=== PATIENT | female | born 1955 | race Hispanic/Latino ===

== ENCOUNTER → 2017-10-13 | Outpatient (CLI) | payer OTHER, MEDICARE ==
[~2017-10-13] MED LIST: ASPIR 8181 MG PO; ATORVASTATIN CA20 MG PO; BIOTIN 800 MCG1 EACH PO; BIOTIN10 MG; CALCIUM CITRAT1 EAC2 PO; IOPAMIDOL 370 MG/ML 200 ML INFUS..BTL INJ ONE; LEVOCETIRIZINE D5 MG PO; LISINOPRIL2.5 MG PO; OXYBUTYNIN CHLOR5 MG PO; PANTOPRAZOLE SO40 MG PO; SODIUM CHLORIDE 0.9% 50ML 50 ML ONE; ZETIA10 MG PO
[2017-10-13 09:53] LABS: BLOOD UREA NITROGEN 18 mg/dL (7-26); BUN/CREATININE RATIO 24 (6-25); CREATININE, SERUM 0.76 mg/dL (0.57-1.11); EST GLOMERULAR FILTRATION RATE > 60 ML/MIN (60-)
--- NOTE | 2017-10-13 12:06 | Diagnostic Imaging Report ---
EXAM: CT Chest WITH contrast 10/13/2017 9:15 AM INDICATION: \[id number] \S\1000 \S\DYSPNEA/COPD/CHELSI NODULE COMPARISON: Chest CT dated 08/03/2016 TECHNIQUE: Chest was scanned utilizing a multidetector helical scanner from the lung apex through the level of the adrenal glands without administration of IV contrast. Coronal and sagittal reformations were obtained. Routine protocol was performed. IV CONTRAST: 100 mL of Isovue-370 COMPLICATIONS: None RADIATION DOSE: Total DLP: 587.72 mGy*cm Estimated effective dose: (DLP x 0.014 x size factor) mSv CTDIvol has been reviewed. It is below the limits set by the Radiation Protocol Committee (RPC). FINDINGS: LINES/ TUBES: None. LUNGS AND AIRWAYS: Resolved groundglass opacities, seen on prior exam. Unchanged left upper lobe scarring (series 3, image 20). There is also mild right lower lobe scarring (series 3, image 30). No suspicious lung nodule. Airways are normal. PLEURA: The pleural spaces are clear. HEART AND MEDIASTINUM: The thyroid gland is normal. No mediastinal, hilar or axillary lymphadenopathy. The heart is normal in size.. There is no pericardial effusion. UPPER ABDOMEN: Cholecystectomy. Mild biliary dilatation, likely due to postcholecystectomy reservoir effects. BONES: The visualized bony thorax is within normal limits. SOFT TISSUES: Unremarkable. IMPRESSION: No lung opacification to suggest pneumonia. No lymphadenopathy. Signed by: Dr. Ryne Rascon MD on 10/13/2017 12:02 PM
== END ==
LOC: CT 09:07
PROVIDERS: ATTEND Internal Medicine Critical Care Medicine
DX: R06.00 Dyspnea, unspecified (principal); J44.9 Chronic obstructive pulmonary disease, unspecified
CPT/HCPCS: 36415; 71260; 82565; 84520; Q9967

== ENCOUNTER → 2018-01-20 | Day surgery (SDC) | payer MEDICARE, OTHER ==
[~2018-01-20] MED LIST changes: +BUPIVACAINE HCL 0.5% INJ 30 ML VIAL INJ ONE; +CEFAZOLIN SOD 1 GM VIAL ONE; +CETIRIZINE HCL10 MG PO; +DEXAMETHASONE SOD PHOS INJ 4 MG/ML VIAL ONE; +FENTANYL CITRATE/PF 100MCG/2 ML INJ ONE; -IOPAMIDOL 370 MG/ML 200 ML INFUS..BTL INJ ONE; +KETOROLAC TROMETHAMINE 30 MG/ML VIAL ONE; +LIDOCAINE HCL 2% LOCAL INJ 5 ML SDV VIAL INJ ONE; +MIDAZOLAM HCL 2 MG/2 ML VIAL ONE; +MIRAPEX0.25 MG PO; +NORCO 10-325 T1 EACH PO; +ONDANSETRON HCL INJ 2 MG/ML VIAL ONE; +PROPOFOL IV EMULSION 10 MG/ML 20 ML VIAL ONE; +SERTRALINE HCL100 MG PO; +SEVOFLURANE INHAL SOLN 250 ML PEN BTL ONE; -SODIUM CHLORIDE 0.9% 50ML 50 ML ONE; +ZOLPIDEM TARTRA10 MG PO
--- NOTE | 2018-01-20 12:35 | Operative Report ---
DATE OF PROCEDURE: January 20, 2018 [employer] MANAGER: Gurinder Jason PA-C The patient was brought to the operating room for induction of anesthesia. Throughout this case, my PA's assistance was necessary for retraction of soft tissue and positioning of the extremity. This allows for efficient and technically successful execution of the operation and is considered medically necessary. PREOPERATIVE DIAGNOSES 1. Bilateral carpal tunnel syndrome. 2. Right 3rd trigger finger. POSTOPERATIVE DIAGNOSES 1. Bilateral carpal tunnel syndrome. 2. Right 3rd trigger finger. PROCEDURES 1. Bilateral endoscopic carpal tunnel release. 2. Release of right 3rd trigger finger. INDICATIONS: The patient is a 62-year-old lady who has clinic signs and symptoms consistent with bilateral carpal tunnel syndrome and right 3rd trigger finger. She has failed conservative management and would like to proceed with definitive treatment. The risks and benefits of the surgery have been explained. She states she understands and wishes to proceed. DESCRIPTION OF PROCEDURE: The patient was brought to the operating room and placed under general anesthetic. Both upper extremities were prepped and draped in a sterile manner. Initial attention was directed towards the right side. A preoperative time out was performed. The extremity was exsanguinated, and a proximal tourniquet was inflated to 200 mmHg. Initial attention was directed towards the trigger finger. An incision was made over the distal palmar crease in line with the 3rd finger. The A1 yi was carefully dissected out. This was released with a 15-blade surgical knife. The release was completed with some tenotomy scissors. The tendon was retracted from the wound. There was mild fraying but no further stenosing tenosynovitis. The wound was irrigated and closed with 2 interrupted nylon stitches. An incision was then made over the flexion crease of the palm. The palmaris longus was retracted to the radial side of the wound. The flexor retinaculum was elevated and incised with a pair of tenotomy scissors. An elevator was used to tease the tenosynovium off of the undersurface of the transverse carpal ligament. Dilators were placed, and the hook of the hamate was palpated. The MicroAire endoscope was then placed into the carpal tunnel. The undersurface of the transverse carpal ligament was cleanly visualized without evidence of soft-tissue interposition. The knife was deployed, and the ligament was cut from distal to proximal. Full-thickness cut was noted. The proximal retinaculum was incised under direct visualization with a pair of blunt Metzenbaum scissors. The incision was closed with 2 nylon stitches. The same procedure for the carpal tunnel was then performed on the left side. Sterile bandages were applied. The patient was extubated and transported to the recovery room in stable condition. There was no blood loss, and all needle and sponge counts were correct. Job#: [id number]
== END | disposition home or self-care (01) ==
LOC: OR 08:13
PROVIDERS: ATTEND Specialist
DX: G56.03 Carpal tunnel syndrome, bilateral upper limbs (principal); M65.331 Trigger finger, right middle finger; K21.9 Gastro-esophageal reflux disease without esophagitis; M54.2 Cervicalgia; E11.9 Type 2 diabetes mellitus without complications; I10 Essential (primary) hypertension; E78.5 Hyperlipidemia, unspecified; F32.9 Major depressive disorder, single episode, unspecified; F17.210 Nicotine dependence, cigarettes, uncomplicated; Z88.6 Allergy status to analgesic agent; Z01.810 Encounter for preprocedural cardiovascular examination; Z79.82 Long term (current) use of aspirin; Z68.41 Body mass index [BMI] 40.0-44.9, adult
CPT/HCPCS: 26055; 29848; 93005; J0690; J1100; J1885; J2001; J2250; J2405

== ENCOUNTER → 2025-04-11 | Day surgery (SDC) | payer MEDICARE ==
[2025-04-01 14:20] LABS: BASOPHILS % 0.3 % (0.0-1.0); EOSINOPHILS % 1.7 % (0.0-6.0); LYMPHOCYTES % 37.9 % (18.0-39.1); MONOCYTES % 7.1 % (4.4-11.3); NEUTROPHILS % 52.5 % (38.7-80.0); RED CELL DISTRIBUTION WIDTH 13.9 % (11.7-14.4)
[~2025-04-11] MED LIST changes: -BUPIVACAINE HCL 0.5% INJ 30 ML VIAL INJ ONE; +BUPROPION XL150 MG PO; -CEFAZOLIN SOD 1 GM VIAL ONE; +DEXAMETHASONE SOD PHOS INJ 4 MG/ML SDV ONE; -DEXAMETHASONE SOD PHOS INJ 4 MG/ML VIAL ONE; -FENTANYL CITRATE/PF 100MCG/2 ML INJ ONE; +FLONASE ALLERG9.9 ML INH; +GABAPENTIN600 MG PO; +LACTATED RINGER'S 1,000 ML ONE; +MELOXICAM7.5 MG PO; -MIDAZOLAM HCL 2 MG/2 ML VIAL ONE; +OMEPRAZOLE40 MG PO; -ONDANSETRON HCL INJ 2 MG/ML VIAL ONE; +ONDANSETRON HCL INJ 2MG/ML 2ML 2 MG/ML VIAL ONE; -SEVOFLURANE INHAL SOLN 250 ML PEN BTL ONE; +ZOLPIDEM TARTRAT5 MG PO; +[UNRECOGNIZED DRUG - OTHER] PO
[2025-04-11 07:34] VITALS: TEMP 97.6
[2025-04-11] MEDS: FENTANYL CITRATE/PF 100MCG/2 ML INJ ONE (08:03)
[2025-04-11 08:40] VITALS: BP 147/81; PULSE 70; RESP 16; O2SAT 96
== END | disposition home or self-care (01) ==
LOC: OR 05:16
PROVIDERS: ATTEND Specialist
DX: M65.341 Trigger finger, right ring finger (principal); I10 Essential (primary) hypertension; E78.00 Pure hypercholesterolemia, unspecified; K21.9 Gastro-esophageal reflux disease without esophagitis; M19.90 Unspecified osteoarthritis, unspecified site; E66.813 Obesity, class 3; F17.290 Nicotine dependence, other tobacco product, uncomplicated; F32.A Depression, unspecified; Z79.83 Long term (current) use of bisphosphonates; Z88.5 Allergy status to narcotic agent; Z79.899 Other long term (current) drug therapy; Z79.1 Long term (current) use of non-steroidal anti-inflammatories (NSAID); Z88.2 Allergy status to sulfonamides; Z68.42 Body mass index [BMI] 45.0-49.9, adult; Z01.810 Encounter for preprocedural cardiovascular examination; Z01.812 Encounter for preprocedural laboratory examination
CPT/HCPCS: 26055; 36415; 71046; 85025; 93005; J0690; J1100; J1885; J2003; J2405; J2704; J3010; J7121